=== PATIENT | female | born 1945 | race Caucasian/White ===

== ENCOUNTER 2017-07-15 09:27 | Outpatient (CLI) | payer MEDICARE ==
--- NOTE | 2017-07-15 10:54 | CT ---
HEAD CT WITHOUT CONTRAST: DATE: 07/15/17. COMPARISON: None. HISTORY: Evaluate left scalp cyst. TECHNIQUE: Serial axial CT imaging is obtained at 4.5 mm intervals from the skull base through the vertex withou t contrast. FINDINGS: There is a prominent exophytic soft tissue mass associated with the scalp laterally on the left in th e frontoparietal region measuring 4.3 x 3.0 cm. This lesion is primarily relatively low density, wit h central Hounsfield units in the 15-20 range. This lesion also contains areas of coarse calcificati on. Along its posterior margin it demonstrates a focus of soft tissue density with Hounsfield units of up to 50, measuring 1.4 cm. In addition, it appears to contain fat anteriorly, with a low-density focus measuring 7 mm on axial image 26. The adjacent bone is unremarkable. Imaged paranasal sinuses/mastoid air cells are well aerated. The re is no displaced calvarial fracture. There is no intracranial hemorrhage, midline shift, mass effect, or ventricular enlargement. IMPRESSION: Nonspecific exophytic left-sided scalp lesion with fluid, fat, calcification, and soft tissue compone nts. This lesion could represent an epidermoid cyst or dermoid cyst. Clinical correlation is requir ed. Rapid growth could signify a more aggressive lesion, including sarcoma. POS: [facility]
--- NOTE | 2017-07-15 12:14 | MRI ---
MRI BRAIN WITH AND WITHOUT CONTRAST: TECHNIQUE: Multiplanar, multisequential imaging of brain obtained. Postcontrast images obtained after administe ring 20 cc MultiHance IV. INDICATION: Evaluate mass left scalp which has been present for many years but is enlarging. COMPARISON: Comparison is made to CT performed earlier today which revealed a mass in the scalp with low density center. There were some scattered densities in this mass suggesting internal debris or calcification . There is no osseous involvement on CT. FINDINGS: Scalp mass on the left is also seen on MRI measuring 4.2 cm AP dimension. This mass exhibits predomi nant high T2 signal with some internal areas of low signal and heterogeneity consistent with debris o r calcification as noted on CT. This is low T1 signal with internal heterogeneity. It abuts the out er table of the skull without evidence of bony erosion or involvement. The ventricles have normal size and position. No evidence of restricted diffusion. No evidence of m ass or edema. There are scattered white matter hyperintensities consistent with mild to moderate chr onic ischemic white matter change. No abnormal enhancement identified. No enhancement within this s calp mass. Intracranial internal carotid arteries and proximal cerebral arteries show flow voids. Basilar arter y is patent. Paranasal sinuses and mastoids are clear. IMPRESSION: 1. The 4 cm scalp mass on the left abuts the outer table of the skull. No evidence of osseous invol vement. No internal enhancement. Low density on CT and MR signal characteristics suggest possible i nclusion cyst with internal debris and/or calcifications. 2. Mild to moderate chronic ischemic white matter changes. 3. No acute intracranial abnormality. POS: [facility]
[2017-07-15] MEDS ORDERED: Gadobenate Dimeglumine 529 MG/1 ML (20ML VIAL) ONE (15:11)
== END 2017-07-15 09:28 | disposition home or self-care (01) ==
LOC: TBSIIMAG 09:27
PROVIDERS: ATTEND Surgery
DX: L98.9 Disorder of the skin and subcutaneous tissue, unspecified (principal); R51 Headache; G93.89 Other specified disorders of brain
CPT/HCPCS: 70450; 70553; 82565; A9579

== ENCOUNTER 2017-09-22 06:20 | Day surgery (SDC) | payer MEDICARE ==
[2017-09-19 08:02] VITALS: BMI 45.8
[2017-09-22] MEDS ORDERED: CEFAZOLIN/Water 2 GM/20 ML SYRINGE ONE (06:31)
[2017-09-22] MEDS ORDERED: Bacitracin Zinc Ointment 30 gm TUBE ONE (06:32)
[2017-09-22] MEDS ORDERED: Heparin 5,000 UNITS/ML VIAL ONE (06:32)
[2017-09-22] MEDS ORDERED: Bupivacaine/Epinephrine 0.25% 30 ML VIAL ONE (06:32)
[2017-09-22] MEDS ORDERED: Fentanyl 100 MCG/2 ML VIAL ONE ×3 (07:01→10:20)
[2017-09-22] MEDS ORDERED: Dexamethasone 20 MG/5 ML VIAL ONE (11:52)
[2017-09-22] MEDS ORDERED: Ondansetron HCl/PF 4 MG/2 ML Vial ONE (11:52)
[2017-09-22] MEDS ORDERED: PROPOFOL 200 MG/20 ML VIAL ONE (11:52)
[2017-09-22] MEDS ORDERED: Lidocaine 1% PF 5 ML VIAL ONE (11:52)
[2017-09-22] MEDS ORDERED: Glycopyrrolate 0.2 MG/ML 5 ML SYRINGE ONE (11:52)
[2017-09-22] MEDS ORDERED: PHENYLEPHRINE-NS 100 MCG/ML 10 ML SYRINGE ONE (11:52)
--- NOTE | 2017-09-23 06:53 | EKG ---
Test Reason : PREOP Blood Pressure : / mmHG Vent. Rate : 074 BPM Atrial Rate : 074 BPM P-R Int : 182 ms QRS Dur : 090 ms QT Int : 384 ms P-R-T Axes : 027 011 034 degrees QTc Int : 426 ms Normal sinus rhythm Normal ECG No previous ECGs available Confirmed by DOLORES GALINDO ([id number]) on 09/23/2017 6:53:03 AM Referred By: ISIDRA Confirmed By:DOLORES GALINDO
--- NOTE | 2017-09-23 11:44 | OP ---
DATE OF PROCEDURE: 09/22/2017 PREOPERATIVE DIAGNOSIS: Sebaceous cyst of scalp. POSTOPERATIVE DIAGNOSIS: Sebaceous cyst of scalp. PROCEDURES PERFORMED: 1. Wide excision sebaceous cyst of scalp (6 cm in greatest dimension). 2. Complex closure of scalp, 9 cm. DESCRIPTION OF PROCEDURE: Following induction of adequate anesthesia, the patient was prepped and dr aped in the usual sterile fashion in the right lateral position. The lesion was widely excised. Thi s left a sizable defect. Subgaleal undermining was done for approximately 15 cm medially/superiorly as well as inferiorly. [place] catheter balloons were placed (01:36) inflated and then deflated in order to stretch the tissue to allow for proper closure. (01:46) were taken out anteriorly and posteriorly. Closure was achieved with 2-0 PDS suture and opal. The patient tolerated the pr ocedure well.
== END 2017-09-22 13:25 | disposition home or self-care (01) ==
LOC: SDC 06:20
PROVIDERS: ATTEND Plastic Surgery
PROC: 0HB0XZZ Excision of Scalp Skin, External Approach (ICD-10-PCS; principal; 2017-09-22)
DX: L72.11 Pilar cyst (principal); I10 Essential (primary) hypertension; M19.90 Unspecified osteoarthritis, unspecified site; Z88.2 Allergy status to sulfonamides; Z79.82 Long term (current) use of aspirin; Z79.899 Other long term (current) drug therapy
CPT/HCPCS: 88304; 93005; 93010; 96374; 96376; J1100; J1644; J2001; J2405; J2704; J3010